=== PATIENT | male | born 1995 | race Caucasian/White ===

== ENCOUNTER 2018-03-14 22:42 | Emergency (ER) | payer MEDICAID ==
[~2018-03-14] VITALS: Ht 167.6 cm; Wt 104.3 kg
[2018-03-14 22:45] VITALS: BP 144/80
[2018-03-15] MEDS ORDERED: MORPHINE SULFATE 10 MG/ML VIAL. IM ONE
[2018-03-15] MEDS ORDERED: diazePAM 5 MG TABLET PO ONE
--- NOTE | 2018-03-15 00:14 | PHYS DOC ---
Past Medical History Past Medical History: Anxiety, Asthma, Bipolar, Schizophrenia, Other Additional Past Medical Histor: "BACK MASS", ANGER MANAGEMENT, ADHD/ADD Past Surgical History: No Surgical History Additional Information: 1 PPD Alcohol Use: Sober Drug Use: None Adult General Chief Complaint Chief Complaint: BACK PAIN OR INJURY [facility] HPI Patient is a 22 year old male who presents with acute on chronic back pain. The patient states he has been followed at [facility] over the last year for chronic back pain. He reports he was found to have a "mass" on his back somewhere. His next follow-up appointment is 10 days from now. He presents to the ER today complaining of worsening low back pain symptoms with some numbness that radiates down the left leg. He has no weakness or loss of bowel or bladder. No from recent fever or chills. The pain is feeling is exactly the chronic pain he normally has only stronger. No additional injury. He has been taking tramadol at home. He was taking ibuprofen also which did give him some relief. He also complains of constipation from the pain medications he has been taking. He previously failed treatment with hydrocodone. Review of Systems Review of Systems Constitutional: Denies fever Eyes: Denies change in visual acuity HENT: Denies nasal congestion Respiratory: Denies cough or shortness of breath Cardiovascular: No additional information not addressed in HPI GI: Denies abdominal pain, nausea : Denies dysuria or hematuria Musculoskeletal: Denies back pain Integument: Denies rash Neurologic: Denies focal neuro complaints Endocrine: Denies polyuria All other systems were reviewed and found to be within normal limits, except as documented in this note. Current Medications Current Medications Current Medications Medications (Trade) Dose Ordered Sig/Erick Start Time Stop Time Status Last Admin Dose Admin Diazepam (Valium) 5 mg 1X ONCE 03/15/18 00:00 03/15/18 00:01 DC Morphine Sulfate (Morphine Sulfate) 10 mg 1X ONCE 03/15/18 00:00 03/15/18 00:01 DC Allergies Allergies Allergies Coded Allergies Type Severity Reaction Last Updated Verified No Known Drug Allergies 03/14/18 No Physical Exam Physical Exam Constitutional: Well developed, well nourished, mild distress 2/2 pain with some antalgic movements, non-toxic appearance HENT: Normocephalic, atraumatic, bilateral external ears normal, oropharynx moist Eyes: PERRLA Neck: Normal range of motion Lungs & Thorax: no respiratory distress Abdomen: Bowel sounds normal, soft Skin: Warm Back: + TTP diffusely over lumbar spine and paraspinal muscles Extremities: Normal exam Neurologic: Alert and oriented X 3, 5/5 motor strength bilateral LE's. 2/4 DTR' s at patellar and Achilles levels, sensation to light touch intact over all dermatomes. Psychologic: Affect normal Current Patient Data Vital Signs Vital Signs Date Time Temp Pulse Resp B/P (MAP) Pulse Ox O2 Delivery O2 Flow Rate FiO2 03/14/18 22:45 98.2 90 18 144/80 (101) 97 Room Air 98.2 EKG EKG [] Radiology/Procedures Radiology/Procedures [] Course & Med Decision Making Course & Med Decision Making Pertinent Labs and Imaging studies reviewed. (See chart for details) Patient was evaluated in the emergency department for acute on chronic low back pain. He had no loss of bowel or bladder subjectively. He has 5 over 5 motor strength. He had no new trauma. There is no indication this evening for imaging. Patient was given intramuscular morphine and by mouth Valium in the ER which did improve his pain symptoms. He is discharged home with medications for pain and also recommendations for bowel regimen. Patient is advised to keep his follow-up appointment at [place]. He stated during the ED course he wanted to establish care at [place] so he is provided a list of [facility] physicians also. Dragon Disclaimer Dragon Disclaimer This electronic medical record was generated, in whole or in part, using a voice recognition dictation system. Departure Departure Disposition: 01 HOME, SELF-CARE Condition: GOOD Referrals: UNKNOWN PCP NAME (PCP) JONATHAN VALLADARES DO Mar 15, 2018 00:14
[2018-03-15] MEDS ORDERED: POLY17PO29 PO (00:24)
[2018-03-15] MEDS ORDERED: OXYC1TAB15 PO (00:24)
[2018-03-15] MEDS ORDERED: SENN8.8S5 PO (00:24)
[2018-03-15] MEDS ORDERED: DIAZ5TAB PO (00:24)
[2018-03-15] MEDS ORDERED: DOCU100C28 PO (00:24)
[2018-03-15] MEDS ORDERED: PRED20TA PO (00:24)
== END 2018-03-15 01:03 | disposition home or self-care (01) ==
LOC: ER 22:42
DX: G89.29 Other chronic pain (principal); M54.5 Low back pain; K59.00 Constipation, unspecified; F41.9 Anxiety disorder, unspecified; J45.909 Unspecified asthma, uncomplicated; F31.9 Bipolar disorder, unspecified; F20.9 Schizophrenia, unspecified; F17.200 Nicotine dependence, unspecified, uncomplicated
CPT/HCPCS: 96372; 99283; J2270

== ENCOUNTER 2018-04-17 22:51 | Emergency (ER) | payer MEDICAID ==
[~2018-04-17] VITALS: Ht 170.2 cm; Wt 108.9 kg
[~2018-04-17 22:51] MED LIST: DIAZ5TAB PO; DOCU100C28 PO; OXYC1TAB15 PO; POLY17PO29 PO; PRED20TA PO; SENN8.8S5 PO
[2018-04-17 23:05] VITALS: BP 140/78
[2018-04-17] MEDS ORDERED: METH4TAB2 PO (23:27)
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
[2018-04-17] MEDS ORDERED: predniSONE 20 MG TABLET PO ONE (23:30)
== END 2018-04-17 23:35 | disposition home or self-care (01) ==
LOC: ER 22:51
DX: G89.29 Other chronic pain (principal); M54.41 Lumbago with sciatica, right side; M54.42 Lumbago with sciatica, left side; J45.909 Unspecified asthma, uncomplicated; F20.9 Schizophrenia, unspecified; F90.9 Attention-deficit hyperactivity disorder, unspecified type; F31.9 Bipolar disorder, unspecified
CPT/HCPCS: 99283; J7512

== ENCOUNTER 2018-05-11 02:55 | Emergency (ER) | payer MEDICAID ==
[~2018-05-11] VITALS: Ht 165.1 cm; Wt 113.4 kg
[~2018-05-11 02:55] MED LIST changes: +METH4TAB2 PO
[2018-05-11 02:57] VITALS: BP 146/87
[2018-05-11] MEDS ORDERED: KETOROLAC 60 MG/2 ML VIAL. IM ONE (03:30)
[2018-05-11] MEDS ORDERED: CYCLOBENZAPRINE 10 MG TABLET. PO ONE (03:30)
[2018-05-11] MEDS ORDERED: traMADol 50 MG TABLET PO ONE (03:30)
[2018-05-11] MEDS ORDERED: ORPH100T PO (03:49)
[2018-05-11] MEDS ORDERED: DICL50TA4 PO (03:49)
[2018-05-11] MEDS ORDERED: METH4TAB2 PO (03:49)
--- NOTE | 2018-05-11 03:49 | PHYS DOC ---
Past Medical History Past Medical History: Anxiety, Asthma, Bipolar, Schizophrenia, Other Additional Past Medical Histor: "BACK MASS", ANGER MANAGEMENT, ADHD/ADD Past Surgical History: No Surgical History Additional Information: 1 PPD Alcohol Use: Sober Drug Use: None Adult General Chief Complaint Chief Complaint: BACK PAIN - NO INJURY HPI HPI Patient is a 22-year-old male who presents with complaint of worsening of his chronic low back pain. Patient states the pain is in the bilateral lower back extending into his buttocks and down both legs. Patient states that he ran out of his tramadol and does not have an appointment to see his primary physician for few more days. Patient states that pain is been keeping him up tonight and has not been able to sleep. Review of Systems Review of Systems Constitutional: Denies fever or chills [] Respiratory: Denies cough or shortness of breath [] Cardiovascular: No additional information not addressed in HPI [] GI: Denies abdominal pain, nausea, vomiting, bloody stools or diarrhea [] : Denies dysuria or hematuria [] Musculoskeletal: Complains of lower back pain [] Neurologic: Denies headache, focal weakness or sensory changes. Denies loss of bowel or bladder function. [] Current Medications Current Medications Current Medications Medications (Trade) Dose Ordered Sig/Erick Start Time Stop Time Status Last Admin Dose Admin Cyclobenzaprine HCl (Flexeril) 10 mg 1X ONCE 05/11/18 03:30 05/11/18 03:31 DC 05/11/18 03:36 10 MG Ketorolac Tromethamine (Toradol Im) 60 mg 1X ONCE 05/11/18 03:30 05/11/18 03:31 DC 05/11/18 03:35 60 MG Tramadol HCl (Ultram) 50 mg 1X ONCE 05/11/18 03:30 05/11/18 03:31 DC 05/11/18 03:36 50 MG Allergies Allergies Allergies Coded Allergies Type Severity Reaction Last Updated Verified No Known Drug Allergies 03/14/18 No Physical Exam Physical Exam Constitutional: Well developed, well nourished, no acute distress, non-toxic appearance. [] HENT: Normocephalic, atraumatic, bilateral external ears normal, oropharynx moist, no oral exudates, nose normal. [] Eyes: PERRLA, EOMI, conjunctiva normal, no discharge. [] Neck: Normal range of motion, no tenderness, supple, no stridor. [] Cardiovascular:Heart rate regular rhythm, no murmur [] Lungs & Thorax: Bilateral breath sounds clear to auscultation [] Abdomen: Bowel sounds normal, soft, no tenderness, no masses, no pulsatile masses. [] Skin: Warm, dry, no erythema, no rash. [] Back: No tenderness, no CVA tenderness. [] Extremities: No tenderness, no cyanosis, no clubbing, ROM intact, no edema. [] Neurologic: Alert and oriented X 3, normal motor function, normal sensory function, no focal deficits noted. [] Psychologic: Affect normal, judgement normal, mood normal. [] Current Patient Data Vital Signs Vital Signs Date Time Temp Pulse Resp B/P (MAP) Pulse Ox O2 Delivery O2 Flow Rate FiO2 05/11/18 03:36 Room Air 05/11/18 02:57 97.7 88 20 146/87 (106) 100 97.7 EKG EKG [] Radiology/Procedures Radiology/Procedures [] Course & Med Decision Making Course & Med Decision Making Pertinent Labs and Imaging studies reviewed. (See chart for details) [] Dragon Disclaimer Dragon Disclaimer This electronic medical record was generated, in whole or in part, using a voice recognition dictation system. Departure Departure Impression: Primary Impression: Chronic low back pain Disposition: 01 HOME, SELF-CARE Condition: STABLE Referrals: UNKNOWN PCP NAME (PCP) Patient Instructions: Chronic Back Pain Scripts Orphenadrine Citrate (ORPHENADRINE CITRATE) 100 Mg Tablet.er 1 TAB PO BID PRN for MUSCLE SPASMS, #14 TAB Prov: COLEEN WILLIS Jr. DO 05/11/18 Diclofenac Sodium (DICLOFENAC SODIUM) 50 Mg Tablet.dr 1 TAB PO BID PRN for PAIN, #20 TAB Prov: COLEEN WILLIS Jr. DO 05/11/18 Methylprednisolone (MEDROL) 4 Mg Tab.ds.pk 1 PKG PO UD, #1 PKG Prov: COLEEN WILLIS Jr. DO 05/11/18 Problem Qualifiers Primary Impression: Chronic low back pain Back pain laterality: bilateral Sciatica presence: with sciatica Sciatica laterality: bilateral sciatica Qualified Codes: M54.42 - Lumbago with sciatica, left side; M54.41 - Lumbago with sciatica, right side; G89.29 - Other chronic pain COLEEN WILLIS Jr. DO May 11, 2018 03:49
== END 2018-05-11 04:10 | disposition home or self-care (01) ==
LOC: ER 02:55
DX: G89.29 Other chronic pain (principal); M54.41 Lumbago with sciatica, right side; F41.9 Anxiety disorder, unspecified; J45.909 Unspecified asthma, uncomplicated; F31.9 Bipolar disorder, unspecified; F20.9 Schizophrenia, unspecified; F17.200 Nicotine dependence, unspecified, uncomplicated
CPT/HCPCS: 96372; 99283; J1885

== ENCOUNTER → 2019-11-23 | Outpatient (CLI) | payer OTHER, MEDICAID ==
[~2019-11-23] MED LIST changes: +DICL50TA4 PO; +ORPH100T PO
[2019-11-23 10:46] LABS: BASO # 0.1 x10^3/uL (0.0-0.2); BASO % 1 % (0-3); EOS # 0.3 x10^3/uL (0.0-0.7); EOS % 5 % (0-3); HEMATOCRIT 41.6 % (39.0-53.0); HEMOGLOBIN 13.8 g/dL (13.0-17.5); LYMPH # 1.7 x10^3/uL (1.0-4.8); LYMPH % 29 % (24-48); MEAN CORPUSCULAR HEMOGLOBIN 27 pg (25-35); MEAN CORPUSCULAR HGB CONC 33 g/dL (31-37); MEAN CORPUSCULAR VOLUME 80 fL (79-100); MONO # 0.4 x10^3/uL (0.0-1.1); MONO % 7 % (0-9); NEUT # 3.4 x10^3/uL (1.8-7.7); NEUT % 58 % (31-73); PLATELET COUNT 264 x10^3/uL (140-400); RED BLOOD COUNT 5.23 x10^6/uL (4.30-5.70); RED CELL DISTRIBUTION WIDTH 13.7 % (11.5-14.5); WHITE BLOOD COUNT 5.9 x10^3/uL (4.0-11.0)
== END ==
LOC: ONCLAB 10:24
PROVIDERS: ATTEND Internal Medicine Hematology & Oncology
DX: C83.39 Diffuse large B-cell lymphoma, extranodal and solid organ sites (principal)
CPT/HCPCS: 36415; 85025

== ENCOUNTER → 2019-11-23 | Outpatient (CLI) | payer OTHER, MEDICAID ==
[~2019-11-23] MED LIST changes: +CONTRAST GIVEN. MC PRN; +IOHEXOL 240 MG/ML 50ML VIAL. PO ONE; +IOHEXOL 300 MG/ML 100ML VIAL. IV ONE
--- NOTE | 2019-11-23 13:02 | RAD ---
EXAM: CT Chest, Abdomen, and Pelvis with IV contrast INDICATION: Reason: LYMPHOMA, NON-HODGKIN'S / Spl. Instructions: OMNI 300 INJ 75 MLS, OMNI 240 30 MLS / History: TECHNIQUE: Multi-detector row CT images were acquired from the thoracic inlet through the ischial tuberosities with the use of IV contrast. Sagittal and coronal images were acquired from the transaxial data. All CT scans performed at this facility utilize dose optimization techniques as appropriate to the exam, including the following: Automated exposure control and adjustment of the mA and/or KV according to patient size (this includes techniques or standardized protocols for targeted exams where dose is indication/reason for exam). IV CONTRAST: Administered ORAL CONTRAST: Administered COMPARISON: None available. FINDINGS: CHEST: CARDIOVASCULAR: Unremarkable MEDIASTINUM & DEEPAK: Irregular shaped soft tissue in the anterior mediastinum with fatty infiltration is compatible with residual thymic tissue. No mass or adenopathy is apparent. LUNGS: No pulmonary infiltrate, nodule, or other focal abnormality. PLEURAL SPACE: No pleural effusions or pneumothorax. OSSEOUS & SOFT TISSUE: Dense sclerosis at T12 is present with coarsened trabeculation and evidence of previous single level posterior decompression.. ABDOMEN/PELVIS: LIVER: Unremarkable BILIARY SYSTEM: Gallbladder is unremarkable. Bile ducts are not dilated. PANCREAS: Unremarkable SPLEEN: Unremarkable ADRENALS: Unremarkable KIDNEYS & URETERS: Unremarkable BLADDER: Unremarkable REPRODUCTIVE ORGANS: Unremarkable GASTROINTESTINAL: The stomach, small bowel, and colon are unremarkable. The appendix is normal. MESENTERY/PERITONEUM/RETROPERITONEUM: A 9 mm nodule in the left upper quadrant omentum between the spleen and greater curvature of the stomach likely represents a lymph node. VASCULAR: Unremarkable LYMPH NODES: No adenopathy OSSEOUS & SOFT TISSUES: Unremarkable IMPRESSION: No adenopathy in the chest abdomen or pelvis, or other findings suggestive of active lymphoma. Dense sclerosis at T12 could reflect posttreatment changes. Correlate with any prior imaging if available. Electronically signed by: Maritza Hernandez MD (11/23/2019 12:59 PM) [id number]
== END | disposition home or self-care (01) ==
LOC: CT 08:20
PROVIDERS: ATTEND Internal Medicine Hematology & Oncology
DX: C83.39 Diffuse large B-cell lymphoma, extranodal and solid organ sites (principal); G95.89 Other specified diseases of spinal cord
CPT/HCPCS: 71260; 74177; Q9966; Q9967

== ENCOUNTER 2020-05-24 21:37 | Emergency (ER) | payer MEDICAID, OTHER ==
[~2020-05-24] VITALS: Ht 167.6 cm; Wt 109.0 kg
[~2020-05-24 21:37] MED LIST changes: -CONTRAST GIVEN. MC PRN; -IOHEXOL 240 MG/ML 50ML VIAL. PO ONE; -IOHEXOL 300 MG/ML 100ML VIAL. IV ONE
[2020-05-24 22:45] VITALS: BP 167/89
[2020-05-24] MEDS ORDERED: CYCL10TA2 PO (23:24)
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
== END 2020-05-24 23:30 | disposition home or self-care (01) ==
LOC: ER 21:37
DX: S16.1XXA Strain of muscle, fascia and tendon at neck level, initial encounter (principal); F20.9 Schizophrenia, unspecified; J45.909 Unspecified asthma, uncomplicated; F31.9 Bipolar disorder, unspecified; F17.200 Nicotine dependence, unspecified, uncomplicated; F90.9 Attention-deficit hyperactivity disorder, unspecified type; X50.9XXA Other and unspecified overexertion or strenuous movements or postures, initial encounter; Y93.89 Activity, other specified; Y92.89 Other specified places as the place of occurrence of the external cause; Y99.8 Other external cause status
CPT/HCPCS: 99283

== ENCOUNTER 2020-08-15 18:53 | Emergency (ER) | payer SELFPAY ==
[~2020-08-15] VITALS: Ht 170.2 cm; Wt 105.0 kg
[~2020-08-15 18:53] MED LIST changes: +CYCL10TA2 PO; +SENN8.8S13 PO; -SENN8.8S5 PO
[2020-08-15 20:07] LABS: BASO # 0.1 x10^3/uL (0.0-0.2); BASO % 1 % (0-3); EOS # 0.4 x10^3/uL (0.0-0.7); EOS % 4 % (0-3); HEMATOCRIT 41.5 % (39.0-53.0); HEMOGLOBIN 14.1 g/dL (13.0-17.5); LYMPH # 2.2 x10^3/uL (1.0-4.8); LYMPH % 24 % (24-48); MEAN CORPUSCULAR HEMOGLOBIN 27 pg (25-35); MEAN CORPUSCULAR HGB CONC 34 g/dL (31-37); MEAN CORPUSCULAR VOLUME 79 fL (79-100); MONO # 0.6 x10^3/uL (0.0-1.1); MONO % 6 % (0-9); NEUT # 5.9 x10^3/uL (1.8-7.7); NEUT % 64 % (31-73); PLATELET COUNT 265 x10^3/uL (140-400); RED BLOOD COUNT 5.27 x10^6/uL (4.30-5.70); RED CELL DISTRIBUTION WIDTH 13.8 % (11.5-14.5); WHITE BLOOD COUNT 9.2 x10^3/uL (4.0-11.0)
--- NOTE | 2020-08-15 20:10 | RAD ---
EXAMINATION: XR CHEST 1V CLINICAL HISTORY: Back pain EXAM DATE/TIME: 08/15/2020 8:05 PM COMPARISON: None FINDINGS: Lines, Tubes, and Devices: None. Cardiomediastinal Silhouette: Within normal limits. Lungs and Pleura: No evidence of focal airspace consolidation, pleural effusion, or pneumothorax. Bones and Soft Tissues: No acute osseous abnormality. IMPRESSION: No evidence of acute cardiopulmonary abnormality. Electronically signed by: Frederick Riggins DO (08/15/2020 8:08 PM) [id number]
[2020-08-15 20:18] LABS: CALCIUM 8.2 mg/dL (8.5-10.1); CREATININE 0.8 mg/dL (0.7-1.3); GFR 116.9; POTASSIUM 3.6 mmol/L (3.5-5.1)
[2020-08-15 20:19] LABS: PROTHROMBIN TIME PATIENT 14.5 SEC (11.7-14.0)
[2020-08-15 20:24] LABS: ALBUMIN 4.5 g/dL (3.4-5.0); ALBUMIN/GLOBULIN RATIO 1.6 (1.0-1.7); TOTAL BILIRUBIN 0.4 mg/dL (0.2-1.0); TOTAL PROTEIN 7.4 g/dL (6.4-8.2)
[2020-08-15] MEDS ORDERED: ONDANSETRON PF 4 MG/2 ML VIAL. IVP ONE (21:00)
[2020-08-15] MEDS ORDERED: HYDROmorphone 2 MG/ML VIAL IVP ONE (21:00)
[2020-08-15] MEDS ORDERED: IOHEXOL 300 MG/ML 100ML VIAL. IV ONE (21:45)
[2020-08-15 22:00] VITALS: BP 118/72
[2020-08-15] MEDS ORDERED: CONTRAST GIVEN. MC PRN (22:00)
--- NOTE | 2020-08-15 23:52 | PHYS DOC ---
Past Medical History Past Medical History: Anxiety, Asthma, Bipolar, Cancer, Schizophrenia, Other Additional Past Medical Histor: B CELL LYMPHOMA, ADHD/ADD Past Surgical History: Other Additional Past Surgical Histo: Thoracic back surgery to remove mass 2019. Smoking Status: Current Every Day Smoker Alcohol Use: Sober Drug Use: None General Adult EDM: Chief Complaint: ABDOMINAL PAIN HPI: HPI: Patient is a 24 year old [f__sex] who presents with [] Review of Systems: Review of Systems: Constitutional: Denies fever or chills. [] Eyes: Denies change in visual acuity. [] HENT: Denies nasal congestion or sore throat. [] Respiratory: Denies cough or shortness of breath. [] Cardiovascular: Denies chest pain or edema. [] GI: Denies abdominal pain, nausea, vomiting, bloody stools or diarrhea. [] : Denies dysuria. [] Musculoskeletal: Denies back pain or joint pain. [] Integument: Denies rash. [] Neurologic: Denies headache, focal weakness or sensory changes. [] Endocrine: Denies polyuria or polydipsia. [] Lymphatic: Denies swollen glands. [] Psychiatric: Denies depression or anxiety. [] Heart Score: Risk Factors: Risk Factors: DM, Current or recent (<one month) smoker, HTN, HLP, family history of CAD, obesity. Risk Scores: Score 0 - 3: 2.5% MACE over next 6 weeks - Discharge Home Score 4 - 6: 20.3% MACE over next 6 weeks - Admit for Clinical Observation Score 7 - 10: 72.7% MACE over next 6 weeks - Early Invasive Strategies Current Medications: Current Medications Medications (Trade) Dose Ordered Sig/Erick Start Time Stop Time Status Last Admin Dose Admin Hydromorphone HCl (Dilaudid) 0.5 mg 1X ONCE 08/15/20 21:00 08/15/20 21:01 DC 08/15/20 21:08 0.5 MG Info (CONTRAST GIVEN -- Rx MONITORING) 1 each PRN DAILY PRN 08/15/20 22:00 08/17/20 21:59 Iohexol (Omnipaque 300 Mg/ml) 75 ml 1X ONCE 08/15/20 21:45 08/15/20 21:48 DC Ondansetron HCl (Zofran) 4 mg 1X ONCE 08/15/20 21:00 08/15/20 21:01 DC 08/15/20 21:08 4 MG Allergies: Allergies: Allergies Coded Allergies Type Severity Reaction Last Updated Verified No Known Drug Allergies 03/14/18 No Physical Exam: PE: Constitutional: Well developed, well nourished, no acute distress, non-toxic janel earance. [] HENT: Normocephalic, atraumatic, bilateral external ears normal, oropharynx moist, no oral exudates, nose normal. [] Eyes: PERRLA, EOMI, conjunctiva normal, no discharge. [] Neck: Normal range of motion, no tenderness, supple, no stridor. [] Cardiovascular:Heart rate regular rhythm, no murmur [] Lungs & Thorax: Bilateral breath sounds clear to auscultation [] Abdomen: Bowel sounds normal, soft, no tenderness, no masses, no pulsatile masses. [] Skin: Warm, dry, no erythema, no rash. [] Back: No tenderness, no CVA tenderness. [] Extremities: No tenderness, no cyanosis, no clubbing, ROM intact, no edema. [] Neurologic: Alert and oriented X 3, normal motor function, normal sensory function, no focal deficits noted. [] Psychologic: Affect normal, judgement normal, mood normal. [] Current Patient Data: Labs: Laboratory Tests Test 08/15/20 19:50 White Blood Count 9.2 x10^3/uL (4.0-11.0) Red Blood Count 5.27 x10^6/uL (4.30-5.70) Hemoglobin 14.1 g/dL (13.0-17.5) Hematocrit 41.5 % (39.0-53.0) Mean Corpuscular Volume 79 fL (79-100) Mean Corpuscular Hemoglobin 27 pg (25-35) Mean Corpuscular Hemoglobin Concent 34 g/dL (31-37) Red Cell Distribution Width 13.8 % (11.5-14.5) Platelet Count 265 x10^3/uL (140-400) Neutrophils (%) (Auto) 64 % (31-73) Lymphocytes (%) (Auto) 24 % (24-48) Monocytes (%) (Auto) 6 % (0-9) Eosinophils (%) (Auto) 4 % (0-3) H Basophils (%) (Auto) 1 % (0-3) Neutrophils # (Auto) 5.9 x10^3/uL (1.8-7.7) Lymphocytes # (Auto) 2.2 x10^3/uL (1.0-4.8) Monocytes # (Auto) 0.6 x10^3/uL (0.0-1.1) Eosinophils # (Auto) 0.4 x10^3/uL (0.0-0.7) Basophils # (Auto) 0.1 x10^3/uL (0.0-0.2) Prothrombin Time 14.5 SEC (11.7-14.0) H Prothrombin Time INR 1.2 (0.8-1.1) H Activated Partial Thromboplast Time 31 SEC (24-38) Sodium Level 144 mmol/L (136-145) Potassium Level 3.6 mmol/L (3.5-5.1) Chloride Level 105 mmol/L (98-107) Carbon Dioxide Level 29 mmol/L (21-32) Anion Gap 10 (6-14) Blood Urea Nitrogen 16 mg/dL (8-26) Creatinine 0.8 mg/dL (0.7-1.3) Estimated GFR (Cockcroft-Gault) 116.9 BUN/Creatinine Ratio 20 (6-20) Glucose Level 74 mg/dL (70-99) Calcium Level 8.2 mg/dL (8.5-10.1) L Total Bilirubin 0.4 mg/dL (0.2-1.0) Aspartate Amino Transferase (AST) 22 U/L (15-37) Alanine Aminotransferase (ALT) 37 U/L (16-63) Alkaline Phosphatase 106 U/L (46-116) Creatine Kinase 257 U/L (39-308) Troponin I Quantitative < 0.017 ng/mL (0.000-0.055) Total Protein 7.4 g/dL (6.4-8.2) Albumin 4.5 g/dL (3.4-5.0) Albumin/Globulin Ratio 1.6 (1.0-1.7) Lipase 53 U/L (73-393) L Laboratory Tests 08/15/20 19:50 Laboratory Tests 08/15/20 19:50 Vital Signs: Vital Signs Date Time Temp Pulse Resp B/P (MAP) Pulse Ox O2 Delivery O2 Flow Rate FiO2 08/15/20 19:25 98.4 65 18 151/75 (100) 99 Room Air 98.4 EKG: EKG: [] Radiology/Procedures: Radiology/Procedures: [] Course & Med Decision Making: Course & Med Decision Making Pertinent Labs and Imaging studies reviewed. (See chart for details) [] Dragon Disclaimer: Dragon Disclaimer: This electronic medical record was generated, in whole or in part, using a voice recognition dictation system. Departure Departure Impression: Primary Impression: Abdominal pain Additional Impression: Thoracic back pain Disposition: LEFT AGAINST MEDICAL ADVICE Condition: STABLE Referrals: NO PCP (PCP) CATHIE ALCALA DO August 15, 2020 23:52
== END 2020-08-15 22:30 | disposition left against medical advice (07) ==
LOC: ER 18:53
DX: R10.9 Unspecified abdominal pain (principal); M54.6 Pain in thoracic spine; M54.5 Low back pain; J45.909 Unspecified asthma, uncomplicated; F31.9 Bipolar disorder, unspecified; F20.9 Schizophrenia, unspecified; F17.200 Nicotine dependence, unspecified, uncomplicated
CPT/HCPCS: 36415; 71045; 80053; 82550; 83690; 84484; 85025; 85610; 85730; 96374; 96375; 99285; J1170; J2405

== ENCOUNTER 2020-08-19 13:30 | Emergency (ER) | payer SELFPAY ==
[~2020-08-19] VITALS: Ht 167.6 cm; Wt 106.8 kg
--- NOTE | 2020-08-19 14:18 | ED.ADGEN ---
Past Medical History Past Medical History: Cancer Additional Past Medical Histor: SPINAL CANCER, B-cell lymphoma Past Surgical History: Other Additional Past Surgical Histo: T-11 & T-12 REMOVAL Smoking Status: Current Every Day Smoker Alcohol Use: Rarely Drug Use: None General Adult EDM: Chief Complaint: ABDOMINAL PAIN HPI: HPI: Patient is a 24 year old male, accompanied by his significant other with reports of constant pressure in his left low back, and intermittent numbness and tingling of his lower extremities for the past month. Patient reports a history of B-cell lymphoma in his spine that he had surgery and chemo for in 2019. Patient denies any loss of bowel or bladder control, saddle anesthesia, fever, cough, abdominal pain, nausea, vomiting, diarrhea, shortness of breath, body aches, or fatigue. Patient denies any dysuria, hematuria, or increased urinary frequency. He states that the pressure in his back is constant, he currently rates the discomfort a 4 out of 10 on the pain scale, he denies any alleviating or exacerbating factors. Review of Systems: Review of Systems: Complete ROS is negative unless otherwise noted in HPI. Current Medications: Current Medications Medications (Trade) Dose Ordered Sig/Erick Start Time Stop Time Status Last Admin Dose Admin Acetaminophen (Tylenol) 1,000 mg 1X ONCE 08/19/20 19:00 08/19/20 19:01 DC 08/19/20 18:57 1,000 MG Gadoterate Meglumine (Clariscan) 20 ml 1X ONCE 08/19/20 16:00 08/19/20 16:01 DC 08/19/20 17:02 20 ML Sodium Chloride 1,000 ml @ 1,000 mls/hr 1X ONCE 08/19/20 14:45 08/19/20 15:44 DC 08/19/20 17:52 1,000 MLS/HR Allergies: Allergies: Allergies Coded Allergies Type Severity Reaction Last Updated Verified No Known Drug Allergies 03/14/18 No Physical Exam: PE: See Above Constitutional: Well developed, well nourished, no acute distress, non-toxic a ppearance. [] HENT: Normocephalic, atraumatic, bilateral external ears normal, nose normal. [] Eyes: PERRLA, EOMI, conjunctiva normal, no discharge. [] Neck: Normal range of motion, no stridor. [] Cardiovascular:Heart rate regular rhythm Lungs & Thorax: Respirations even and unlabored, no retractions, no respiratory distress Abdomen: soft, no tenderness, no palpable mass Back: No bony tenderness, step-off, crepitus, or deformity, left lumbar paraspinal tenderness to palpation, no palpable mass Skin: Warm, dry, no erythema, no rash. [] Extremities: BLE: Normal patellar reflexes, strength 5/5, normal sensation, no cyanosis, ROM intact, no edema. [] Neurologic: Alert and oriented X 3, normal motor, normal sensory, no focal deficits noted. [] Psychologic: Affect normal, judgement normal, mood normal. [] Current Patient Data: Labs: Laboratory Tests Test 08/19/20 14:37 08/19/20 18:15 White Blood Count 9.4 x10^3/uL (4.0-11.0) Red Blood Count 5.48 x10^6/uL (4.30-5.70) Hemoglobin 14.7 g/dL (13.0-17.5) Hematocrit 43.5 % (39.0-53.0) Mean Corpuscular Volume 80 fL (79-100) Mean Corpuscular Hemoglobin 27 pg (25-35) Mean Corpuscular Hemoglobin Concent 34 g/dL (31-37) Red Cell Distribution Width 13.8 % (11.5-14.5) Platelet Count 267 x10^3/uL (140-400) Neutrophils (%) (Auto) 67 % (31-73) Lymphocytes (%) (Auto) 21 % (24-48) L Monocytes (%) (Auto) 6 % (0-9) Eosinophils (%) (Auto) 6 % (0-3) H Basophils (%) (Auto) 1 % (0-3) Neutrophils # (Auto) 6.3 x10^3/uL (1.8-7.7) Lymphocytes # (Auto) 2.0 x10^3/uL (1.0-4.8) Monocytes # (Auto) 0.5 x10^3/uL (0.0-1.1) Eosinophils # (Auto) 0.5 x10^3/uL (0.0-0.7) Basophils # (Auto) 0.1 x10^3/uL (0.0-0.2) Sodium Level 144 mmol/L (136-145) Potassium Level 3.9 mmol/L (3.5-5.1) Chloride Level 105 mmol/L (98-107) Carbon Dioxide Level 29 mmol/L (21-32) Anion Gap 10 (6-14) Blood Urea Nitrogen 16 mg/dL (8-26) Creatinine 0.8 mg/dL (0.7-1.3) Estimated GFR (Cockcroft-Gault) 116.9 BUN/Creatinine Ratio 20 (6-20) Glucose Level 89 mg/dL (70-99) Calcium Level 8.6 mg/dL (8.5-10.1) Total Bilirubin 0.3 mg/dL (0.2-1.0) Aspartate Amino Transferase (AST) 26 U/L (15-37) Alanine Aminotransferase (ALT) 29 U/L (16-63) Alkaline Phosphatase 95 U/L (46-116) Total Protein 7.5 g/dL (6.4-8.2) Albumin 4.1 g/dL (3.4-5.0) Albumin/Globulin Ratio 1.2 (1.0-1.7) Urine Collection Type Unknown Urine Color Yellow Urine Clarity Clear Urine pH 6.0 (<5.0-8.0) Urine Specific [place] >=1.030 (1.000-1.030) Urine Protein Negative mg/dL (NEG-TRACE) Urine Glucose (UA) Negative mg/dL (NEG) Urine Ketones (Stick) Negative mg/dL (NEG) Urine Blood Negative (NEG) Urine Nitrite Negative (NEG) Urine Bilirubin Negative (NEG) Urine Urobilinogen Dipstick 0.2 mg/dL (0.2 mg/dL) Urine Leukocyte Esterase Negative (NEG) Urine RBC Occ /HPF (0-2) Urine WBC 0 /HPF (0-4) Urine Amorphous Sediment Present /HPF Urine Bacteria 0 /HPF (0-FEW) Laboratory Tests 08/19/20 14:37 Laboratory Tests 08/19/20 14:37 Vital Signs: Vital Signs Date Time Temp Pulse Resp B/P (MAP) Pulse Ox O2 Delivery O2 Flow Rate FiO2 08/19/20 19:36 67 17 146/96 (113) 96 Room Air 08/19/20 14:00 97.6 97.6 EKG: EKG: [] Heart Score: C/O Chest Pain: No Risk Scores: Score 0 - 3: 2.5% MACE over next 6 weeks - Discharge Home Score 4 - 6: 20.3% MACE over next 6 weeks - Admit for Clinical Observation Score 7 - 10: 72.7% MACE over next 6 weeks - Early Invasive Strategies Radiology/Procedures: Radiology/Procedures: PROCEDURE: THORACIC SPINE WO/W CONTRAST MRI LUMBAR SPINE WITHOUT AND WITH IV CONTRAST, MRI THORACIC SPINE WITHOUT AND WITH IV CONTRAST Date: 08/19/2020 3:35 PM Indication: right mid to low back pain hx of spinal cancer B cell lymphoma in 2019 Comparison: CT abdomen pelvis 11/23/2019. Technique: Multi-planar multi-weighted magnetic resonance imaging of the thoracic and lumbar spine was performed with and without intravenous contrast using the standard spine protocol. 20 cc Clariscan contrast was administered intravenously during the examination. FINDINGS: Fatty marrow replacement T11-L1, probably postradiation change. Sclerosis at T12 may represent treated lesions. Posterior decompression at T11-12 and T12-L1. The thoracic and lumbar spine are normally aligned. No acute fracture. Mild multilevel degenerative disc desiccation and disc height loss. The conus terminates at a normal level. No abnormal signal is seen within the visualized distal spinal cord. No clumping of intrathecal nerve roots. No soft tissue abnormality in the visualized abdomen or pelvis. Thoracic: No significant spinal canal stenosis or neural foraminal narrowing T12-L1: No disc bulge. No facet arthropathy. No significant spinal stenosis or neural foraminal narrowing. L1-L2: No disc bulge. No facet arthropathy. No significant spinal stenosis or neural foraminal narrowing. L2-L3: No disc bulge. No facet arthropathy. No significant spinal stenosis or neural foraminal narrowing. L3-L4: Disc bulge. Mild facet arthropathy. No significant spinal stenosis or neural foraminal narrowing. L4-L5: Disc bulge. Mild facet arthropathy. No significant spinal stenosis or neural foraminal narrowing. L5-S1: Disc bulge. Mild facet arthropathy. No significant spinal stenosis or neural foraminal narrowing. IMPRESSION: 1. No acute fracture. No enhancing lesions. 2. Posterior decompression and postradiation changes at T11-L1 with sclerosis of T12, probably a treated lesion. [] Course & Med Decision Making: Course & Med Decision Making Pertinent Labs and Imaging studies reviewed. (See chart for details) [id number] I spoke with radiologist Dr. Stahl about the patient, his history, and his complaints. Dr. Stahl states that the patient needs an MRI for evaluation of his symptoms. Will order MRI of thoracic and lumbar spine w/wo contrast as recommended. Patient is a 24-year-old male who presented to the emergency department with complaints of pressure in his low back and intermittent numbness and tingling of his lower extremities, consistent with previous symptoms experienced when he was diagnosed with B-cell lymphoma of his spine. MRI of the thoracic and lumbar spine did not reveal any acute findings, patient has bulging discs of L3-S1 and previous postop changes. Prescription written for ibuprofen. Patient encouraged to follow-up with his primary care doctor for further evaluation and treatment of what is likely to be chronic back pain. Return to the ER if symptoms worsen or fever develops. Patient verbalized an understanding of home care, medications, follow-up, and return to ED instructions and was in agreement with the plan of care. [] Dragon Disclaimer: Dragon Disclaimer: This electronic medical record was generated, in whole or in part, using a voice recognition dictation system. Departure Departure Impression: Primary Impression: Bulging discs Disposition: HOME / SELF CARE / HOMELESS Condition: STABLE Referrals: NO PCP (PCP) Patient Instructions: Back Pain, Adult, [id number] Additional Instructions: Fill the prescription(s) and use as directed. There were bulging discs present on your CT scan today. Apply heat or ice for to sore areas as needed for comfort. Activity as tolerated. Follow up with your primary care doctor in 1-2 days, return to the ER if symptoms worsen or you develop a fever. Scripts Ibuprofen (IBUPROFEN) 800 Mg Tablet 800 MG PO PRN Q6HRS PRN for PAIN for 10 Days, #40 TAB 0 Refills Prov: OLENA GAYTAN APRN 08/19/20 OLENA GAYTAN APRN August 19, 2020 14:18
[2020-08-19] MEDS ORDERED: IV NORMAL SALINE 1000ML BAG 1,000 ML IV ONE (14:45)
[2020-08-19 14:50] LABS: BASO # 0.1 x10^3/uL (0.0-0.2); BASO % 1 % (0-3); EOS # 0.5 x10^3/uL (0.0-0.7); EOS % 6 % (0-3); HEMATOCRIT 43.5 % (39.0-53.0); HEMOGLOBIN 14.7 g/dL (13.0-17.5); LYMPH % 21 % (24-48); MEAN CORPUSCULAR HEMOGLOBIN 27 pg (25-35); MEAN CORPUSCULAR HGB CONC 34 g/dL (31-37); MEAN CORPUSCULAR VOLUME 80 fL (79-100); MONO # 0.5 x10^3/uL (0.0-1.1); MONO % 6 % (0-9); NEUT # 6.3 x10^3/uL (1.8-7.7); NEUT % 67 % (31-73); PLATELET COUNT 267 x10^3/uL (140-400); RED BLOOD COUNT 5.48 x10^6/uL (4.30-5.70); RED CELL DISTRIBUTION WIDTH 13.8 % (11.5-14.5); WHITE BLOOD COUNT 9.4 x10^3/uL (4.0-11.0)
[2020-08-19 15:18] LABS: CALCIUM 8.6 mg/dL (8.5-10.1); CREATININE 0.8 mg/dL (0.7-1.3); GFR 116.9; POTASSIUM 3.9 mmol/L (3.5-5.1)
[2020-08-19 15:24] LABS: ALBUMIN 4.1 g/dL (3.4-5.0); ALBUMIN/GLOBULIN RATIO 1.2 (1.0-1.7); TOTAL BILIRUBIN 0.3 mg/dL (0.2-1.0); TOTAL PROTEIN 7.5 g/dL (6.4-8.2)
[2020-08-19] MEDS ORDERED: GADOTERATE 7.5 MMOL/15ML VIAL. IVP ONE (16:00)
--- NOTE | 2020-08-19 17:48 | RAD ---
MRI LUMBAR SPINE WITHOUT AND WITH IV CONTRAST, MRI THORACIC SPINE WITHOUT AND WITH IV CONTRAST Date: 08/19/2020 3:35 PM Indication: right mid to low back pain hx of spinal cancer B cell lymphoma in 2019 Comparison: CT abdomen pelvis 11/23/2019. Technique: Multi-planar multi-weighted magnetic resonance imaging of the thoracic and lumbar spine wa s performed with and without intravenous contrast using the standard spine protocol. 20 cc Clariscan contrast was administered intravenously during the examination. FINDINGS: Fatty marrow replacement T11-L1, probably postradiation change. Sclerosis at T12 may represent treate d lesions. Posterior decompression at T11-12 and T12-L1. The thoracic and lumbar spine are normally aligned. No acute fracture. Mild multilevel degenerative d isc desiccation and disc height loss. The conus terminates at a normal level. No abnormal signal is seen within the visualized distal spina l cord. No clumping of intrathecal nerve roots. No soft tissue abnormality in the visualized abdomen or pelvis. Thoracic: No significant spinal canal stenosis or neural foraminal narrowing T12-L1: No disc bulge. No facet arthropathy. No significant spinal stenosis or neural foraminal narro wing. L1-L2: No disc bulge. No facet arthropathy. No significant spinal stenosis or neural foraminal narrow ing. L2-L3: No disc bulge. No facet arthropathy. No significant spinal stenosis or neural foraminal narrow ing. L3-L4: Disc bulge. Mild facet arthropathy. No significant spinal stenosis or neural foraminal narrowi ng. L4-L5: Disc bulge. Mild facet arthropathy. No significant spinal stenosis or neural foraminal narrowi ng. L5-S1: Disc bulge. Mild facet arthropathy. No significant spinal stenosis or neural foraminal narrowi ng. IMPRESSION: 1. No acute fracture. No enhancing lesions. 2. Posterior decompression and postradiation changes at T11-L1 with sclerosis of T12, probably a nithin damien lesion. Electronically signed by: Marcio Dias MD (08/19/2020 5:45 PM) [facility]
[2020-08-19 18:50] LABS: BILIRUBIN,URINE NEGATIVE (NEG); CLARITY,URINE CLEAR; COLOR,URINE YELLOW; NITRITE,URINE NEGATIVE (NEG); PROTEIN,URINE NEGATIVE (NEG-TRACE); UROBILINOGEN,URINE 0.2 mg/dL (0.2 mg/dL)
[2020-08-19 18:57] LABS: AMORPHOUS SEDIMENT,UR PRESENT /HPF; BACTERIA,URINE 0 /HPF (0-FEW); RBC,URINE OCC /HPF (0-2); WBC,URINE 0 /HPF (0-4)
[2020-08-19] MEDS ORDERED: ACETAMINOPHEN 500 MG TABLET PO ONE (19:00)
[2020-08-19] MEDS ORDERED: IBUP-1060 PO (19:06)
[2020-08-19 19:36] VITALS: BP 146/96
== END 2020-08-19 19:37 | disposition home or self-care (01) ==
LOC: ER 13:30
DX: M51.36 Other intervertebral disc degeneration, lumbar region (principal); M54.5 Low back pain; F17.200 Nicotine dependence, unspecified, uncomplicated
CPT/HCPCS: 36415; 72157; 72158; 80053; 81001; 85025; 96361; 96374; 99285; A9575; J7030